=== PATIENT | male | born 1945 | race Caucasian/White ===

== ENCOUNTER 2019-08-13 12:16 | Observation (INO) | payer MEDICARE ==
--- NOTE | 2019-08-13 12:23 | ER Document Report ---
ED General - General Chief Complaint: Chest Pain Stated Complaint: CHEST PAIN Time Seen by Provider: 08/13/19 12:19 Notes: Patient presents with chest pain central occasionally radiating to the back nonpleuritic which happened about an hour ago. Relief with nitro then got worse with second dose of nitro. He says "I think it is angina" but is never had angina before. He is a poorly controlled diabetic and drove here for over 24 hours straight with intermittent breaks from [place] yesterday. He also says he has a history of blood clots. He has chronic right leg swelling unchanged from baseline. Positive cough from CHF as far as he can tell but no change and no hemoptysis. - Related Data Allergies/Adverse Reactions: insulin detemir [From Levemir U-100 Insulin] Allergy (Verified 08/13/19 14:20) Past Medical History - Social History Smoking Status: Never Smoker Family History: None Review of Systems - Review of Systems Notes: REVIEW OF SYSTEMS GEN: Denies fever, chills, weight loss ENT: Denies sore throat, nasal discharge, ear pain EYES: Denies blurry vision, eye pain, discharge CV: Chest pain RESP: Denies cough, shortness of breath, wheezing GI: Denies abdominal pain, nausea, vomiting, diarrhea MSK: Right foot pain swelling with multiple fractures diabetes/collapse SKIN: Denies rash, skin lesions LYMPH: Denies swollen glands/lymph nodes NEURO: Denies headache, focal weakness or numbness, dizziness PSYCH: Denies depression, suicidal or homicidal ideation PHYSICAL EXAMINATION General: No acute distress, well-nourished Head: Atraumatic, normocephalic ENT: Mouth normal, oropharynx moist, no exudates or tonsillar enlargement Eyes: Conjunctiva normal, pupils equal, lids normal Neck: No JVD, supple, no guarding CVS: Normal rate, regular rhythm, no murmurs Resp: No resp distress, equal and normal breath sounds bilaterally GI: Nondistended, soft, no tenderness to palpation, no rebound or guarding Ext: Orthopedic shoe right foot with chronic right-sided edema Back: No CVA or midline TTP Skin: No rash, warm Lymphatic: No lymphadeopathy noted Neuro: Awake, alert. Face symmetric. GCS 15. Physical Exam - Vital signs Vitals: Resp Pulse Ox 18 95 08/13/19 12:23 08/13/19 12:23 Course - Re-evaluation Re-evalutation: 08/13/19 15:11 Chest pain with concerning features both for PE and ACS EKG nonischemic Creatinine 3 baselineVQ scan was done: Low risk as read by radiologist. His troponin is negative. Will be admitted given a heart score of 6. Discussed with Medina sanders physician assistant to the director hospitalist service - Vital Signs Vital signs: Temp Pulse Resp BP Pulse Ox 98.4 F 11 L 138/59 H 91 L 08/13/19 12:30 08/13/19 13:01 08/13/19 13:00 08/13/19 13:01 - Laboratory Result Diagrams: 08/13/19 12:28 08/13/19 12:28 Laboratory results interpreted by me: 08/13/19 08/13/19 08/13/19 12:28 12:28 12:28 RBC 4.11 L Hgb 12.6 L Hct 37.5 L [place] % (Auto) 13.5 H Eos % (Auto) 8.3 H Absolute Eos (auto) 0.7 H Sodium 129.2 L Chloride 93 L Creatinine 3.09 H Est GFR ( Amer) 24 L Est GFR (MDRD) Non-Af 20 L Glucose 355 H POC Glucose 343 H Discharge - Discharge Clinical Impression: Chest pain, unspecified Qualifiers: Chest pain type: other chest pain Qualified Code(s): R07.89 - Other chest pain; R07.8 - Other chest pain Condition: Good Disposition: ADMITTED OBSERVATION Admitting Provider: Rei (Hospitalist) Unit Admitted: Medical Floor
[2019-08-13 12:48] LABS: ABSOLUTE EOSINOPHILS # (AUTO) 0.7 10^3/uL (0.0-0.6); ABSOLUTE LYMPHOCYTES (AUTO) 2.4 10^3/uL (0.5-4.7); ABSOLUTE MONOCYTES (AUTO) 1.1 10^3/uL (0.1-1.4); ABSOLUTE NEUT (AUTO) 3.8 10^3/uL (1.7-8.2); BASOPHILS % (AUTO) 0.6 % (0-2); EOSINOPHILS % (AUTO) 8.3 % (0-6); HEMATOCRIT 37.5 % (37.9-51.0); HEMOGLOBIN 12.6 g/dL (13.5-17.0); LYMPHOCYTES % (AUTO) 30.3 % (13-45); MEAN CORPUSCULAR HEMOGLOBIN 30.7 pg (27.0-33.4); MEAN CORPUSCULAR HGB CONC 33.7 g/dL (32.0-36.0); MEAN CORPUSCULAR VOLUME 91 fl (80-97); MONOCYTES % (AUTO) 13.5 % (3-13); PLATELET COUNT 381 10^3/uL (150-450); RED BLOOD COUNT 4.11 10^6/uL (4.35-5.55); RED CELL DISTRIBUTION WIDTH 13.2 % (11.5-14.0); SEGMENTED NEUTROPHILS % (AUTO) 47.3 % (42-78); TOTAL CELLS COUNTED % (AUTO) 100 %
[2019-08-13 13:08] LABS: ANION GAP 11 (5-19); BLOOD UREA NITROGEN 17 mg/dL (7-20); CALCIUM 9.5 mg/dL (8.4-10.2); CARBON DIOXIDE 25 mmol/L (22-30); CHLORIDE 93 mmol/L (98-107); GLUCOSE 355 mg/dL (75-110); POTASSIUM 3.9 mmol/L (3.6-5.0)
--- NOTE | 2019-08-13 13:32 | RADIOLOGY REPORT (SQ) ---
EXAM DESCRIPTION: CHEST SINGLE VIEW COMPLETED DATE/TIME: 08/13/2019 1:22 pm REASON FOR STUDY: CP COMPARISON: None. EXAM PARAMETERS: NUMBER OF VIEWS: One view. TECHNIQUE: Single frontal radiographic view of the chest acquired. RADIATION DOSE: NA LIMITATIONS: None. FINDINGS: LUNGS AND PLEURA: No opacities, masses or pneumothorax. No pleural effusion. MEDIASTINUM AND HILAR STRUCTURES: No masses. Contour normal. HEART AND VASCULAR STRUCTURES: Heart normal in size. Normal vasculature. BONES: No acute findings. HARDWARE: None in the chest. OTHER: No other significant finding. IMPRESSION: NO ACUTE RADIOGRAPHIC FINDING IN THE CHEST. TECHNICAL DOCUMENTATION: JOB ID: [id number] 2010 [employer]- All Rights Reserved Reading location - IP/workstation name: [email or web address]
--- NOTE | 2019-08-13 15:18 | RADIOLOGY REPORT (SQ) ---
EXAM DESCRIPTION: NM LUNG VENT/PERF SCAN COMPLETED DATE/TIME: 08/13/2019 2:37 pm REASON FOR STUDY: CP PE CKD COMPARISON: None. RADIONUCLIDE AND DOSE: 5.4 millicuries TC-99m MAA Intravenous 30.1 millicuries TC-99m DTPA Inhaled aerosol TECHNIQUE: Eight views of the lungs acquired post ventilation of DTPA aerosol. Eight matching views of the lungs acquired following injection of MAA. LIMITATIONS: None. FINDINGS: VENTILATION: Symmetric and homogeneous distribution of DTPA aerosol during ventilatory pha se. No significant areas of photopenia. PERFUSION: Perfusion images with normal homogenous activity and no wedge-shaped or segmental defects. No ventilation-perfusion mismatches. OTHER: No other significant finding. IMPRESSION: Low probability pulmonary embolus. TECHNICAL DOCUMENTATION: JOB ID: [id number] 2010 [employer]- All Rights Reserved Reading location - IP/workstation name: [email or web address]
[2019-08-13] MEDS ORDERED: NITROGLYCERIN 0.4 MG/TAB 25 TAB/BOTTLE SL PRN (16:01)
[2019-08-13] MEDS ORDERED: ONDANSETRON HCL INJ/PF 4 MG/2 ML SDV IV PRN (16:06)
[2019-08-13] MEDS ORDERED: OXYCODONE-ACETAMINOPHEN 5-325 MG TABLET PO PRN (16:06)
[2019-08-13] MEDS ORDERED: ONDANSETRON 4 MG TAB.RAPDIS PO PRN (16:06)
[2019-08-13] MEDS ORDERED: ACETAMINOPHEN 325 MG TABLET PO PRN (16:06)
[2019-08-13] MEDS ORDERED: MAG HYDROX/AL HYDROX/SIMETH SUSP 30 ML UDCUP PO PRN (16:06)
[2019-08-13] MEDS ORDERED: (PENDING PHARMACY ID) (Albuterol Sulfate 2 PUFF) IH PRN (16:12)
[2019-08-13] MEDS ORDERED: PROCHLORPERAZINE MALEATE 10 MG TABLET PO PRN (16:12)
[2019-08-13] MEDS ORDERED: CLOPIDOGREL BISULFATE 75 MG TABLET PO SCH (16:15)
[2019-08-13] MEDS ORDERED: DEXTROSE 50%-WATER 25 GM/50 ML DISP.SYRIN IV PRN ×2 (16:18)
[2019-08-13] MEDS ORDERED: DEXTROSE 40% GEL 15 GM TUBE PO PRN ×2 (16:18)
[2019-08-13] MEDS ORDERED: GLUCAGON,HUMAN RECOMB 1 MG INJ IM PRN (16:18)
[2019-08-13 16:36] LABS: INTERNATIONAL RATION (INR) 1.06; PROTHROMBIN TIME 13.8 SEC (11.4-15.4)
[2019-08-13] MEDS ORDERED: MORPHINE SULFATE 10 MG/ML INJ IV PRN (16:40)
--- NOTE | 2019-08-13 16:40 | PDOC H&P ---
History of Present Illness Admission Date/PCP: 08/13/19 15:57 History of Present Illness: CLAUDETTE APPLE is a 73 year old male who was admitted to the hospital under observation status for chest pain. Patient actually lives [place] in [facility], and drove down here yesterday and last night with his daughter to visit his granddaughter for the next week. Patient arrived here in [place] around 0700 and went to sleep. Patient states around 1030 he awoke with some chest pain that eventually went down into his left arm. Patient states at that time it was about a 3 or 4 out of 10. After approximately 1 hour he came to the emergency room to be seen. According to the ER chart the patient received 2 nitros with the first 1 helping and the second 1 not. Patient states that cur rently the pain is like a 1 out of 10. Patient denies any nausea or vomiting. Patient states to the best of his knowledge he has never had a heart attack before. She was given a bottle of nitro 20 years ago but said he is never used it. Patient saw his metal buggy operator about a week ago prior to coming down here and was cleared to make the trip. Patient also saw his petroleum geology faculty member about 2 weeks ago and was cleared to come down here.. She has multiple other comorbidities including diabetes, history of congestive heart failure, stage IV Chronic kidney disease, [place] cell skin cancer, carotid artery blockage from 20 years ago. The granddaughter who is in the room tells me that the patient's at [place] and since then he has had not much appetite and been under more stress. Patient is a retired nurse. Have resumed most of patient's home meds. Told patient we do not have ca rdiology available today. If patient's troponins are negative, patient remains chest pain-free, probably discharge him home in the morning without doing stress test or follow-up work-up. I did tell them however that this could change based on how he does over the next 12 hours. I also told him that if they so desired I could consult cardiology possibly tomorrow morning. Patient seems satisfied with the plan Past Medical History Cardiac Medical History: Reports: Congestive Heart Failure, Hypertension Pulmonary Medical History: Reports: Bronchitis Endocrine Medical History: Reports: Diabetes Mellitus Type 2 Renal/ History Note: Stage IV kidney disease Malignancy Medical History: Reports: Skin Cancer Past Surgical History Past Surgical History: Reports: Tonsillectomy Social History Smoking Status: Never Smoker - Advance Directive Resuscitation Status: Do Not Resuscitate Family History Family History: None Parental Family History Reviewed: No Children Family History Reviewed: No Sibling(s) Family History Reviewed.: No Medication/Allergy Home Medications: Albuterol Sulfate [Proair HFA Inhalation Aerosol 8.5 gm MDI] 2 puff IH Q6HP PRN 08/13/19 Amlodipine Besylate [Norvasc 10 mg Tablet] 10 mg PO DAILY 08/13/19 Atorvastatin Calcium [Lipitor 40 mg Tablet] 40 mg PO QHS 08/13/19 Clopidogrel Bisulfate [Plavix 75 mg Tablet] 75 mg PO DAILY 08/13/19 Escitalopram Oxalate [Lexapro 10 mg Tablet] 20 mg PO DAILY 08/13/19 Furosemide [Lasix 40 mg Tablet] 40 mg PO DAILY 08/13/19 Hydrocodone/Acetaminophen [[place] 5-325 mg Tablet] 1 tab PO BIDP PRN 08/13/19 Insulin Aspart [Novolog] See Protocol SQ MEALS 08/13/19 Insulin Glargine,Hum.rec.anlog [Lantus Insulin 100 Unit/1 ml 10 ml] 40 units SQ Q12 08/13/19 Melatonin [Melatonin 3 mg Tablet] 3 mg PO QHS 08/13/19 Metoprolol Tartrate [Lopressor 50 mg Tablet] 50 mg PO Q12 08/13/19 Mirtazapine [Remeron] 7.5 mg PO QHS 08/13/19 Multivitamin [One-A-Day Essential] 1 tab PO DAILY 08/13/19 [place]-3/Dha/Epa/Fish Oil [Fish Oil 1,000 mg Softgel] 1,000 mg PO DAILY 08/13/19 Oxybutynin Chloride [Ditropan 5 mg Tablet] 5 mg PO BID 08/13/19 Polyethylene Glycol 3350 [Miralax Powder 17 gm/Packet] 1 packet PO DAILY 08/13/19 Prochlorperazine Maleate [Compazine 10 mg Tablet] 10 mg PO Q6HP PRN 08/13/19 Tamsulosin HCl [Flomax 0.4 mg Cap.sr] 0.8 mg PO QPM 08/13/19 Trazodone HCl [Desyrel 50 mg Tablet] 100 mg PO QHS 08/13/19 Ubidecarenone [Coq10] 50 mg PO DAILY 08/13/19 Allergies/Adverse Reactions: insulin detemir [From Levemir U-100 Insulin] Allergy (Verified 08/13/19 14:20) Review of Systems Constitutional: ABSENT: chills, fever(s), headache(s), weight gain, weight loss Cardiovascular: PRESENT: chest pain Respiratory: ABSENT: cough, hemoptysis Gastrointestinal: ABSENT: abdominal pain, constipation, diarrhea, hematemesis, hematochezia, nausea, vomiting Neurological: ABSENT: abnormal gait, abnormal speech, confusion, dizziness, focal weakness, syncope Psychiatric: ABSENT: anxiety, depression, homidical ideation, suicidal ideation Physical Exam Vital Signs: Temp Pulse Resp BP Pulse Ox 98.4 F 11 L 138/59 H 91 L 08/13/19 12:30 08/13/19 13:01 08/13/19 13:00 08/13/19 13:01 Intake & Output 08/12/19 08/13/19 08/14/19 06:59 06:59 06:59 Weight 118.4 kg General appearance: PRESENT: no acute distress, other - Lying in bed in no distress. After I left he told the nurse he like to have something to drink so diabetic diet was ordered Respiratory exam: PRESENT: clear to auscultation jemima. ABSENT: rales, rhonchi, wheezes Cardiovascular exam: PRESENT: RRR. ABSENT: diastolic murmur, rubs, systolic murmur Neurological exam: PRESENT: alert, awake, oriented to person, oriented to place, oriented to time, oriented to situation, CN II-XII grossly intact. ABSENT: motor sensory deficit Psychiatric exam: PRESENT: appropriate affect, normal mood. ABSENT: homicidal ideation, suicidal ideation Results Laboratory Results: 08/13/19 12:28 08/13/19 12:28 08/13/19 08/13/19 12:28 12:28 WBC 8.0 RBC 4.11 L Hgb 12.6 L Hct 37.5 L MCV 91 MCH 30.7 MCHC 33.7 RDW 13.2 Plt Count 381 Seg Neutrophils % 47.3 Sodium 129.2 L Potassium 3.9 Chloride 93 L Carbon Dioxide 25 Anion Gap 11 BUN 17 Creatinine 3.09 H Est GFR ( Amer) 24 L Glucose 355 H Calcium 9.5 08/13/19 12:28 Troponin I 0.020 Impressions: Lung Scan-VQ NM 08/13/19 12:28 IMPRESSION: Low probability pulmonary embolus. Chest X-Ray 08/13/19 13:01 IMPRESSION: NO ACUTE RADIOGRAPHIC FINDING IN THE CHEST. Assessment and Plan - Diagnosis (1) Diabetes Is this a current diagnosis for this admission?: Yes (2) CHF (congestive heart failure) Is this a current diagnosis for this admission?: Yes (3) Skin cancer Is this a current diagnosis for this admission?: Yes (4) Kidney disease, chronic, stage IV (GFR 15-29 ml/min) Is this a current diagnosis for this admission?: Yes (5) Diabetic foot disease Is this a current diagnosis for this admission?: Yes (6) Carotid artery stenosis Is this a current diagnosis for this admission?: Yes (7) Chest pain, unspecified Qualifiers: Chest pain type: other chest pain Qualified Code(s): R07.89 - Other chest pain; R07.8 - Other chest pain Is this a current diagnosis for this admission?: Yes - Plan Summary Summary: Patient will be admitted to the hospital for gentle IV hydration. Patient tells me that 3 weeks ago when he saw his petroleum geology faculty member he was told he was slightly dehydrated then. Serial troponins will be monitored if they become elevated will consult cardiology tomorrow morning sooner if necessary. Patient's regular medications will be resumed. Place patient on a sliding scale of insulin coverage. She is currently on a statin as well as beta-freddy. Patient took 2 aspirins today at home. Patient is also currently on Plavix Patient is stable to move to the floor - Time Time Spent with patient: 35 or more minutes
[2019-08-13 16:55] LABS: APPEARANCE,URINE CLEAR; BILIRUBIN,URINE NEGATIVE (NEGATIVE); COLOR,URINE STRAW; GLUCOSE, URINE >=500 mg/dL (NEGATIVE); KETONES,URINE NEGATIVE (NEGATIVE); LEUKOCYTE ESTERASE,URINE NEGATIVE (NEGATIVE); NITRITE,URINE NEGATIVE (NEGATIVE); PROTEIN,URINE NEGATIVE (NEGATIVE); URINE SPECIFIC GRAVITY 1.003; UROBILINOGEN,URINE NEGATIVE mg/dL (<2.0)
[2019-08-13] MEDS ORDERED: ALBUTEROL SULFATE HFA (90 MCG/PUFF) 8 GM MDI IH PRN (17:15)
[2019-08-13 17:33] LABS: CREATINE KINASE MB 5.1 ng/mL (<4.55)
[2019-08-13 17:37] LABS: TROPONIN I 0.18 ng/mL
[2019-08-13] MEDS ORDERED: TAMSULOSIN HCL 0.4 MG CAP.SR.24H PO SCH (18:00)
[2019-08-13] MEDS ORDERED: OXYBUTYNIN CHLORIDE 5 MG TABLET PO SCH (18:00)
[2019-08-13] MEDS ORDERED: HEPARIN SOD (PORCINE) 1,000 UNIT/ML 1 ML VIAL IV ONE (18:52)
[2019-08-13] MEDS ORDERED: HEPARIN SODIUM,PORCINE/D5W 25,000 UNIT/250 ML RTUINJ IV PRN (18:53)
[2019-08-13] MEDS ORDERED: HEPARIN SOD (PORCINE) 1,000 UNIT/ML 10 ML VIAL ONE (18:57)
[2019-08-13] MEDS ORDERED: HEPARIN SODIUM,PORCINE/D5W 25,000 UNIT/250 ML RTUINJ IV ONE (18:57)
--- NOTE | 2019-08-13 19:06 | PDOC TRANSFER SUMMARY ---
General Admission Date/PCP: 08/13/19 15:57 Admission Date: 08/13/19 Transfer Date: 08/13/19 Accepting Facility: [facility] Accepting Physician: Amy Resuscitation Status: Do Not Resuscitate - Transfer Diagnosis (1) Diabetes Is this a current diagnosis for this admission?: Yes (2) CHF (congestive heart failure) Is this a current diagnosis for this admission?: Yes (3) Skin cancer Is this a current diagnosis for this admission?: Yes (4) Kidney disease, chronic, stage IV (GFR 15-29 ml/min) Is this a current diagnosis for this admission?: Yes (5) Diabetic foot disease Is this a current diagnosis for this admission?: Yes (6) Carotid artery stenosis Is this a current diagnosis for this admission?: Yes (7) Chest pain, unspecified Is this a current diagnosis for this admission?: Yes (8) Elevated troponin Is this a current diagnosis for this admission?: Yes - Transfer Medications Home Medications: Albuterol Sulfate [Proair HFA Inhalation Aerosol 8.5 gm MDI] 2 puff IH Q6HP PRN 08/13/19 Amlodipine Besylate [Norvasc 10 mg Tablet] 10 mg PO DAILY 08/13/19 Atorvastatin Calcium [Lipitor 40 mg Tablet] 40 mg PO QHS 08/13/19 Clopidogrel Bisulfate [Plavix 75 mg Tablet] 75 mg PO DAILY 08/13/19 Escitalopram Oxalate [Lexapro 10 mg Tablet] 20 mg PO DAILY 08/13/19 Furosemide [Lasix 40 mg Tablet] 40 mg PO DAILY 08/13/19 Hydrocodone/Acetaminophen [[place] 5-325 mg Tablet] 1 tab PO BIDP PRN 08/13/19 Insulin Aspart [Novolog] See Protocol SQ MEALS 08/13/19 Insulin Glargine,Hum.rec.anlog [Lantus Insulin 100 Unit/1 ml 10 ml] 40 units SQ Q12 08/13/19 Melatonin [Melatonin 3 mg Tablet] 3 mg PO QHS 08/13/19 Metoprolol Tartrate [Lopressor 50 mg Tablet] 50 mg PO Q12 08/13/19 Mirtazapine [Remeron] 7.5 mg PO QHS 08/13/19 Multivitamin [One-A-Day Essential] 1 tab PO DAILY 08/13/19 [place]-3/Dha/Epa/Fish Oil [Fish Oil 1,000 mg Softgel] 1,000 mg PO DAILY 08/13/19 Oxybutynin Chloride [Ditropan 5 mg Tablet] 5 mg PO BID 08/13/19 Polyethylene Glycol 3350 [Miralax Powder 17 gm/Packet] 1 packet PO DAILY 08/13/19 Prochlorperazine Maleate [Compazine 10 mg Tablet] 10 mg PO Q6HP PRN 08/13/19 Tamsulosin HCl [Flomax 0.4 mg Cap.sr] 0.8 mg PO QPM 08/13/19 Trazodone HCl [Desyrel 50 mg Tablet] 100 mg PO QHS 08/13/19 Ubidecarenone [Coq10] 50 mg PO DAILY 08/13/19 Transfer Medications: Current Medications Acetaminophen (Tylenol 325 Mg Tablet) 650 mg PO Q4HP PRN PRN Reason: FOR HEADACHE OR PAIN Stop: 09/12/19 16:05 Al Hydrox/Mg Hydrox/Simethicone (Maalox Plus Susp 30 Udcup) 30 ml PO Q6HP PRN PRN Reason: HEARTBURN Stop: 09/12/19 16:05 Albuterol (Ventolin Hfa 8 Gm Mdi) 2 puff IH Q6HP PRN PRN Reason: SHORTNESS OF BREATH Stop: 09/12/19 17:14 Amlodipine Besylate (Norvasc 10 Mg Tablet) 10 mg PO DAILY [facility] Stop: 09/13/19 09:59 Atorvastatin Calcium (Lipitor 40 Mg Tablet) 40 mg PO QHS YEE Stop: 09/12/19 21:59 Clopidogrel Bisulfate (Plavix 75 Mg Tablet) 75 mg PO DAILY YEE Stop: 09/12/19 16:14 Last Admin: 08/13/19 18:16 Dose: 75 mg Documented by: Dextrose (Dextrose Inj 50% Syringe (25 Gm/50 Ml)) 12.5 gm IV PRN PRN; Protocol PRN Reason: FOR BG 50-69 IN ALERT PATIENT Stop: 09/12/19 16:17 Dextrose (Dextrose Inj 50% Syringe (25 Gm/50 Ml)) 25 gm IV PRN PRN; Protocol PRN Reason: PER PROTOCOL Stop: 09/12/19 16:17 Docusate Sodium (Colace 100 Mg Capsule) 100 mg PO DAILY [facility] Stop: 09/13/19 09:59 Escitalopram Oxalate (Lexapro 10 Mg Tablet) 20 mg PO DAILY [facility] Stop: 09/13/19 09:59 Furosemide (Lasix 40 Mg Tablet) 40 mg PO DAILY [facility] Stop: 09/13/19 09:59 Glucagon (Glucagen Inj 1 Mg Vial) 1 mg IM PRN PRN; Protocol PRN Reason: Evaluate for BG < 70 Stop: 09/12/19 16:17 Glucose (Glutose 40% Gel 15 Gm Tube) 15 gm PO PRN PRN; Protocol PRN Reason: FOR BG 50-69 IN ALERT PATIENT Stop: 09/12/19 16:17 Glucose (Glutose 40% Gel 15 Gm Tube) 30 gm PO PRN PRN; Protocol PRN Reason: FOR BG < 50 IN ALERT PATIENT Stop: 09/12/19 16:17 Heparin Sodium (Porcine) (Heparin Inj 5,000 Units/Ml 1 Ml Vial) 5,000 unit SUBCUT Q8 [facility] Stop: 09/12/19 21:59 Sodium Chloride (Nacl 0.9% 1000 Ml Iv Soln) 1,000 mls @ 100 mls/hr IV CONTINUOUS PRN PRN Reason: THIS MED IS NOT "PRN" Stop: 09/12/19 16:05 Heparin Sodium/Dextrose (Heparin Rtu 25,000 Unit/250 Ml D5w Premix) 250 mls @ 0 mls/hr IV CONTINUOUS PRN; Protocol PRN Reason: THIS MED IS NOT "PRN" Stop: 09/12/19 18:52 Insulin Glargine (Lantus Insulin 100 Unit/1 Ml 10 Ml) 40 unit SUBCUT Q12 [facility] Stop: 09/12/19 21:59 Insulin Human Lispro (Humalog Insulin 100 Unit/1 Ml 3 Ml Vial) 0 - 12 unit SUBCUT ACBRKFST [facility]; Protocol Stop: 09/13/19 07:59 Insulin Human Regular (Humulin R (Pyxis) Insulin 100 Unit/Ml 3ml) 0 - 12 unit SUBCUT ACHS [facility]; Protocol Stop: 09/12/19 21:59 Melatonin (Melatonin 3 Mg Tablet) 3 mg PO QHS [facility] Stop: 09/12/19 21:59 Metoprolol Tartrate (Lopressor 50 Mg Tablet) 50 mg PO Q12 [facility] Stop: 09/12/19 21:59 Mirtazapine (Remeron 15 Mg Tablet) 7.5 mg PO QHS [facility] Stop: 09/12/19 21:59 Morphine Sulfate (Morphine 10 Mg/Ml Inj) 4 mg IV Q2HP PRN PRN Reason: FOR CHEST PAIN Stop: 08/20/19 16:39 Nitroglycerin (Nitrostat 0.4 Mg (1/150 Gr) Tabs 25/Bottle) 1 tab SL Q5MP PRN PRN Reason: FOR CHEST PAIN Stop: 09/12/19 16:00 Oxybutynin Chloride (Ditropan 5 Mg Tablet) 5 mg PO BID YEE Stop: 09/12/19 17:59 Last Admin: 08/13/19 18:17 Dose: 5 mg Documented by: Oxycodone/Acetaminophen (Percocet 5-325 Mg Tablet) 1 tab PO Q6HP PRN PRN Reason: FOR PAIN Stop: 08/20/19 16:05 Polyethylene Glycol (Miralax Powder 17 Gm/Packet) 17 gm PO DAILY [facility] Stop: 09/13/19 09:59 Prochlorperazine Maleate (Compazine 10 Mg Tablet) 10 mg PO Q6HP PRN PRN Reason: FOR NAUSEA/VOMITING Stop: 09/12/19 16:11 Tamsulosin HCl (Flomax 0.4 Mg Cap.Sr) 0.8 mg PO QPM YEE Stop: 09/12/19 17:59 Last Admin: 08/13/19 18:16 Dose: 0.8 mg Documented by: Trazodone HCl (Desyrel 50 Mg Tablet) 100 mg PO QHS [facility] Stop: 09/12/19 21:59 - Allergies Allergies/Adverse Reactions: insulin detemir [From Levemir U-100 Insulin] Allergy (Verified 08/13/19 14:20) Hospital Course Hospital Course: The see the H&P that was dictated 2 hours ago Patient's second troponin which was approximately 5 hours after the first 1 was elevated slightly to 0.18. C CK-MB index elevated at 5.10. Repete EKG done at 1830 shows no changes from previous EKG and no acute changes Patient has no chest pain at this time.. I have spoken to [facility] transfer center and [facility] has accepted the patient for . While awaiting transfer patient will be started on heparin protocol for acute coronary syndrome. Patient has nitro ordered as needed as well as morphine.. Due to the weather factor I have informed patient that it may be a while before he is transferred and in fact the next troponin may be done prior to transfer. Patient is aware that we will not take any risk with his transfer as long as he stays pain-free and we continue to treat him with heparin. Patient never made it to the floor I kept him in the emergency room as he is going to be transferred to a higher level of care. Physical Exam Vital Signs: Temp Pulse Resp BP Pulse Ox 98.4 F 19 156/68 H 96 08/13/19 12:30 08/13/19 18:00 08/13/19 18:00 08/13/19 18:00 Intake & Output 08/12/19 08/13/19 08/14/19 06:59 06:59 06:59 Weight 118.4 kg General appearance: PRESENT: no acute distress Respiratory exam: PRESENT: clear to auscultation jemima. ABSENT: rales, rhonchi, wheezes Cardiovascular exam: PRESENT: RRR. ABSENT: diastolic murmur, rubs, systolic murmur Extremities exam: PRESENT: other - Patient has a boot on the right foot secondary to what sounds like diabetic foot ulcers. Patient states he did not want any surgery and therefore this prosthetic boot was placed Neurological exam: PRESENT: alert, awake, oriented to person, oriented to place, oriented to time, oriented to situation, CN II-XII grossly intact. ABSENT: m otor sensory deficit Psychiatric exam: PRESENT: appropriate affect, normal mood. ABSENT: homicidal ideation, suicidal ideation Results Laboratory Results: 08/13/19 12:28 08/13/19 12:28 08/13/19 08/13/19 08/13/19 12:28 12:28 12:28 WBC 8.0 RBC 4.11 L Hgb 12.6 L Hct 37.5 L MCV 91 MCH 30.7 MCHC 33.7 RDW 13.2 Plt Count 381 Seg Neutrophils % 47.3 Sodium 129.2 L Potassium 3.9 Chloride 93 L Carbon Dioxide 25 Anion Gap 11 BUN 17 Creatinine 3.09 H Est GFR ( Amer) 24 L Glucose 355 H Calcium 9.5 TSH 1.93 Urine Color Urine Appearance Urine pH Ur Specific [place] Urine Protein Urine Glucose (UA) Urine Ketones Urine Blood Urine Nitrite Ur Leukocyte Esterase 08/13/19 16:24 WBC RBC Hgb Hct MCV MCH MCHC RDW Plt Count Seg Neutrophils % Sodium Potassium Chloride Carbon Dioxide Anion Gap BUN Creatinine Est GFR ( Amer) Glucose Calcium TSH Urine Color STRAW Urine Appearance CLEAR Urine pH 5.0 Ur Specific [place] 1.003 Urine Protein NEGATIVE Urine Glucose (UA) >=500 H Urine Ketones NEGATIVE Urine Blood NEGATIVE Urine Nitrite NEGATIVE Ur Leukocyte Esterase NEGATIVE 08/13/19 08/13/19 12:28 16:51 CK-MB (CK-2) 5.10 H Troponin I 0.020 0.180 NT-Pro-B Natriuret Pep 1040 H Impressions: Lung Scan-VQ NM 08/13/19 12:28 IMPRESSION: Low probability pulmonary embolus. Chest X-Ray 08/13/19 13:01 IMPRESSION: NO ACUTE RADIOGRAPHIC FINDING IN THE CHEST. Plan Discharge Plan: Unfortunately we do not have cardiology division operations specialist today however I did call a machine puller here, and he suggested that the patient be transferred to higher level of care due to the elevated troponin and the fact that we do not have cardiology tonight and because of the potential weather factor for tomorrow. Patient has been accepted at [facility] for possible cath, however due to weather it is unknown as to when transfer will take place. In the meantime patient will be treated with heparin for acute coronary syndrome. Informed patient of this and he agrees with the plan. Time Spent: Greater than 30 Minutes
[2019-08-13] MEDS: NORMAL SALINE 1000 ML 1,000 ML IV PRN (19:15)
[2019-08-13] MEDS: HEPARIN SOD (PORCINE) 5,000 UNIT/ML 1 ML VIAL SUBCUT SCH (21:13)
--- NOTE | 2019-08-13 21:17 | EKG REPORT ---
SEVERITY:- BORDERLINE ECG - SINUS TACHYCARDIA BORDERLINE T ABNORMALITIES, INFERIOR LEADS : Confirmed by: Tom Tirado 13-Aug-2019 21:16:35
--- NOTE | 2019-08-13 21:18 | EKG REPORT ---
SEVERITY:- ABNORMAL ECG - ECTOPIC ATRIAL TACHYCARDIA RIGHT AXIS DEVIATION : Confirmed by: Tom Tirado 13-Aug-2019 21:17:25
[2019-08-13] MEDS: INSULIN REG, HUMAN 100 UNIT/ML 3 ML VIAL (PYX) SUBCUT SCH (21:30)
[2019-08-13] MEDS ORDERED: ATORVASTATIN CALCIUM 40 MG TABLET PO SCH (22:00)
[2019-08-13] MEDS ORDERED: METOPROLOL TARTRATE 50 MG TABLET PO SCH (22:00)
[2019-08-13] MEDS ORDERED: INSULIN GLARGINE,HUM.REC.ANLOG 1,000 UNIT/10 ML VIAL SUBCUT SCH (22:00)
[2019-08-13] MEDS ORDERED: MELATONIN 3 MG TABLET PO SCH (22:00)
[2019-08-13] MEDS ORDERED: MIRTAZAPINE 15 MG TABLET PO SCH (22:00)
[2019-08-13] MEDS ORDERED: TRAZODONE HCL 50 MG TABLET PO SCH (22:00)
--- NOTE | 2019-08-13 22:19 | Progress Note ---
Provider Note Provider Note: I was called by Carey Bai about how patient status was. His troponin is still pending 30 more minutes I inspected patient and he advises he drove all night arriving here early in the morning to see his new granddaughter and awoke at 1030 with acute chest pain. His CTA was negative per radiology. The hyacinth wilde will call me back in 30 minutes before the troponin. Dr Carvalho was the physician who called. Gail from transfer center contacted us
[2019-08-13 22:38] LABS: CREATINE KINASE MB 6.06 ng/mL (<4.55)
[2019-08-13 22:40] LABS: TROPONIN I 0.361 ng/mL
[2019-08-14 00:56] LABS: APPEARANCE,URINE CLEAR; BILIRUBIN,URINE NEGATIVE (NEGATIVE); COLOR,URINE STRAW; GLUCOSE, URINE >=500 mg/dL (NEGATIVE); KETONES,URINE TRACE mg/dL (NEGATIVE); LEUKOCYTE ESTERASE,URINE NEGATIVE (NEGATIVE); NITRITE,URINE NEGATIVE (NEGATIVE); PROTEIN,URINE NEGATIVE (NEGATIVE); URINE SPECIFIC GRAVITY 1.002; UROBILINOGEN,URINE NEGATIVE mg/dL (<2.0)
[2019-08-14] MEDS: HEPARIN SOD (PORCINE) 5,000 UNIT/ML 1 ML VIAL SUBCUT SCH (05:11)
[2019-08-14 06:11] LABS: ABSOLUTE BASOPHILS # (AUTO) 0.1 10^3/uL (0.0-0.2); ABSOLUTE LYMPHOCYTES (AUTO) 1.7 10^3/uL (0.5-4.7); ABSOLUTE MONOCYTES (AUTO) 0.9 10^3/uL (0.1-1.4); ABSOLUTE NEUT (AUTO) 3.3 10^3/uL (1.7-8.2); BASOPHILS % (AUTO) 0.9 % (0-2); EOSINOPHILS % (AUTO) 13.9 % (0-6); HEMATOCRIT 36.2 % (37.9-51.0); HEMOGLOBIN 12.1 g/dL (13.5-17.0); LYMPHOCYTES % (AUTO) 24.3 % (13-45); MEAN CORPUSCULAR HEMOGLOBIN 30.4 pg (27.0-33.4); MEAN CORPUSCULAR HGB CONC 33.3 g/dL (32.0-36.0); MEAN CORPUSCULAR VOLUME 91 fl (80-97); MONOCYTES % (AUTO) 13.5 % (3-13); PLATELET COUNT 359 10^3/uL (150-450); RED BLOOD COUNT 3.96 10^6/uL (4.35-5.55); RED CELL DISTRIBUTION WIDTH 13.1 % (11.5-14.0); SEGMENTED NEUTROPHILS % (AUTO) 47.4 % (42-78); TOTAL CELLS COUNTED % (AUTO) 100 %; WHITE BLOOD COUNT 6.9 10^3/uL (4.0-10.5)
[2019-08-14 06:26] LABS: ANION GAP 5 (5-19); BLOOD UREA NITROGEN 13 mg/dL (7-20); CARBON DIOXIDE 27 mmol/L (22-30); CHLORIDE 102 mmol/L (98-107); GLUCOSE 102 mg/dL (75-110); POTASSIUM 3.6 mmol/L (3.6-5.0)
[2019-08-14] MEDS: INSULIN REG, HUMAN 100 UNIT/ML 3 ML VIAL (PYX) SUBCUT SCH (07:55)
[2019-08-14] MEDS: NORMAL SALINE 1000 ML 1,000 ML IV PRN (07:57)
[2019-08-14] MEDS ORDERED: INSULIN LISPRO 100 UNIT/ML 3 ML VIAL SUBCUT SCH (08:00)
[2019-08-14 08:16] VITALS: BP 130/55
--- NOTE | 2019-08-14 09:58 | Progress Note ---
Provider Note Provider Note: 08/14/2019 Seen briefly this morning. Portably scheduled to be transferred to [facility] 0 830 EKG this morning shows no acute changes. This is his third EKG since he has been in the ER Troponin continues to climb. On admission it was 0.18 went to 0.36 then it went to 0.48 CK-MB index is also been elevated Patient is having no active chest pain and has been relatively pain-free throughout the night Patient's renal functions appear to be slightly improved with a BUN of 13 creatinine 2.5 and GFR of 25 Will benefit from being transferred to a higher level of care. Patient agrees with the transfer. This was not facilitated earlier due to weather conditions
[2019-08-14] MEDS ORDERED: FUROSEMIDE 40 MG TABLET PO SCH (10:00)
[2019-08-14] MEDS ORDERED: DOCUSATE SODIUM 100 MG CAPSULE PO SCH (10:00)
[2019-08-14] MEDS ORDERED: POLYETHYLENE GLYCOL 3350 POWDER 17 GM/1 PACKET PO SCH (10:00)
[2019-08-14] MEDS ORDERED: ESCITALOPRAM OXALATE 10 MG TABLET PO SCH (10:00)
[2019-08-14] MEDS ORDERED: AMLODIPINE BESYLATE 10 MG TABLET PO SCH (10:00)
--- NOTE | 2019-08-14 10:42 | EKG REPORT ---
SEVERITY:- ABNORMAL ECG - SINUS RHYTHM : Confirmed by: Tom Tirado 14-Aug-2019 10:41:32
== END 2019-08-14 08:40 | disposition short-term general hospital (02) ==
LOC: ER 12:16 → EH 15:57
PROVIDERS: ADMIT Hospitalist; ATTEND Hospitalist
DX: R07.89 Other chest pain (principal); R00.0 Tachycardia, unspecified; C4A.9 Merkel cell carcinoma, unspecified; I65.29 Occlusion and stenosis of unspecified carotid artery; R79.89 Other specified abnormal findings of blood chemistry; I13.0 Hypertensive heart and chronic kidney disease with heart failure and stage 1 through stage 4 chronic kidney disease, or unspecified chronic kidney disease; I50.9 Heart failure, unspecified; N18.4 Chronic kidney disease, stage 4 (severe); E11.22 Type 2 diabetes mellitus with diabetic chronic kidney disease; E11.65 Type 2 diabetes mellitus with hyperglycemia; E13.69 Other specified diabetes mellitus with other specified complication; R60.0 Localized edema; Z66 Do not resuscitate; Z86.711 Personal history of pulmonary embolism; Z86.718 Personal history of other venous thrombosis and embolism; Z79.899 Other long term (current) drug therapy
CPT/HCPCS: 93005 ×2; 96376; 99291; 96375; 96365; 96366; 36415 ×2; 82553; 82962 ×2; 83735; 84443; 85025 ×2; 85610; 85730; 80048 ×2; 81001 ×2; 84484 ×2; 83880; 71045; 78582; 93010 ×2; A9540; A9567; J1644 ×3; A9270 ×10; J2270; J7030 ×2; Q9969; G0378; J1815; J3490